=== PATIENT | female | born 1995 | race Caucasian/White ===

== ENCOUNTER 2017-10-06 21:44 | Emergency (ER) | payer OTHER ==
[~2017-10-06] VITALS: Ht 160 cm; Wt 113.9 kg
[2017-10-06 21:49] VITALS: BP 134/80
--- NOTE | 2017-10-06 22:02 | NUR ---
TO LOBBY,. AMB,VSS,A/W BED, MARJAN NOTED
--- NOTE | 2017-10-06 23:49 | NUR ---
AMBULATED TO ER OF2
--- NOTE | 2017-10-07 00:13 | NUR ---
PT BIB FAMILY C/O COUGH, RUNNYNOSE, NASAL CONGESTION, SOB FOR A WEEK, VOMITIN LOSS OF APPETITE, BODYACHES, ER MD TO JONES, ALL ORDR EXECUTED
[2017-10-07] MEDS ORDERED: guaiFENesin/CODEINE 100/10MG 5 ML UDC PO ONE (02:05)
[2017-10-07] MEDS ORDERED: KETOROLAC 60 MG/2 ML VIAL IM ONE (02:05)
--- NOTE | 2017-10-07 02:15 | NUR ---
IM/PO MEDS GIVEN-NADR AT THIS TIME
[2017-10-07 02:55] VITALS: BP 133/76
--- NOTE | 2017-10-07 02:56 | NUR ---
Patient discharged with v/s stable. Written and verbal after care instructions given and explained. Patient alert, oriented and verbalized understanding of instructions. Ambulatory with steady gait. All questions addressed prior to discharge. ID band removed. Patient advised to follow up with PMD. Rx of AZITHROMYCIN 250MG given. Patient educated on indication of medication including possible reaction and side effects. Opportunity to ask questions provided and answered.
== END 2017-10-07 02:55 | disposition home or self-care (01) ==
LOC: MED 21:44
DX: J18.8 Other pneumonia, unspecified organism (principal); R05 Cough
CPT/HCPCS: 71046; 96372; 99284; J1885